=== PATIENT | female | born 1945 | race Caucasian/White ===

== ENCOUNTER 2020-09-03 11:04 | Day surgery (SDC) | payer MEDICARE ==
[~2020-09-03] VITALS: Ht 172.7 cm; Wt 85.0 kg
[~2020-09-03 11:04] MED LIST: BUPIVACAINE/PF 0.25% ONE; HEPARIN 1,000 UNITS/ML, 10ML ONE; LIDOCAINE 1%, 20ML ONE; PAPAVERINE 30 MG/ML, 2ML ONE; THROMBIN 5,000 UNIT VIAL TP ONE
[2020-09-03] MEDS ORDERED: CHLORHEXIDINE 15 ML UDC ONE (11:54)
[2020-09-03] MEDS ORDERED: LACTATED RINGERS 1,000 ML IV SCH (12:00)
[2020-09-03] MEDS ORDERED: CHLORHEXIDINE 15 ML UDC PO ONE (12:00)
[2020-09-03 12:09] VITALS: BP 199/76
[2020-09-03] MEDS ORDERED: PROPOFOL 50 ML ONE (12:28)
[2020-09-03] MEDS ORDERED: MIDAZOLAM 1 MG/ML, 2ML ONE (12:28)
[2020-09-03] MEDS ORDERED: FENTANYL PF 250 MCG/5ML ONE (12:29)
[2020-09-03] MEDS ORDERED: SODIUM CHLORIDE 0.9% 1,000 ML IV SCH (12:30)
[2020-09-03] MEDS ORDERED: CALCITROL PO (12:38)
[2020-09-03] MEDS ORDERED: [UNRECOGNIZED DRUG - OTHER] PO (12:38)
[2020-09-03] MEDS ORDERED: ACET-1600 PO (12:38)
[2020-09-03] MEDS ORDERED: VIT D PO (12:38)
[2020-09-03] MEDS ORDERED: FLUO20CA23 PO (12:38)
[2020-09-03] MEDS ORDERED: CHLORTRIMETON PO (12:38)
[2020-09-03] MEDS ORDERED: SLEEP AID PO (12:38)
[2020-09-03] MEDS ORDERED: MODA200T2 PO (12:38)
[2020-09-03] MEDS ORDERED: RECLAST (12:38)
[2020-09-03] MEDS ORDERED: ATOR20TA37 PO (12:38)
[2020-09-03] MEDS ORDERED: CENTRUM SILVER WOMEN PO (12:38)
[2020-09-03] MEDS ORDERED: EXCEDRIN TENSION HA PO (12:38)
[2020-09-03] MEDS ORDERED: B COMPLEX PO (12:38)
[2020-09-03] MEDS ORDERED: MECLIZINE PO (12:38)
[2020-09-03] MEDS ORDERED: LISI-170 PO (12:38)
[2020-09-03] MEDS ORDERED: PROPOFOL 10 MG/ML, 20ML ONE (14:05)
[2020-09-03] MEDS ORDERED: ONDANSETRON 2MG/ML, 2ML ONE (14:05)
[2020-09-03] MEDS ORDERED: HYDR-2214 PO (14:42)
[2020-09-03] MEDS ORDERED: LABETALOL 5MG/ML, 20ML IV PRN (15:00)
[2020-09-03] MEDS ORDERED: DIPHENHYDRAMINE 50 MG/ML, 1ML IVPush PRN (15:00)
[2020-09-03] MEDS ORDERED: DIAZEPAM 5 MG/ML, 2ML IVPush PRN (15:00)
[2020-09-03] MEDS ORDERED: morphine SULFATE 10 MG/ML, 1ML IVPush PRN (15:00)
[2020-09-03] MEDS ORDERED: EPHEDRINE 50 MG/ML, 1ML IVPush PRN (15:00)
[2020-09-03] MEDS ORDERED: OXYcodone 5 MG/5 ML ORAL.SOL UDC PO PRN (15:00)
[2020-09-03] MEDS ORDERED: ACETAMINOPHEN 325 MG TABLET PO PRN (15:00)
[2020-09-03] MEDS ORDERED: PROMETHAZINE 25 MG/ML, 1ML IVPush PRN (15:00)
[2020-09-03] MEDS ORDERED: ONDANSETRON 2MG/ML, 2ML IVPush PRN (15:00)
[2020-09-03] MEDS ORDERED: FENTANYL PF 100 MCG/2ML IV PRN (15:00)
[2020-09-03] MEDS ORDERED: EPHEDRINE 50 MG/ML, 1ML IM PRN (15:00)
[2020-09-03] MEDS ORDERED: ACETAMINOPHEN 650 MG/20.3 ML UDC ONE (15:03)
[2020-09-03] MEDS ORDERED: CEFAZOLIN 1,000 MG ONE (16:19)
[2020-09-03] MEDS ORDERED: PROTAMINE SULFATE 10 MG/ML, 5ML ONE (16:19)
== END 2020-09-03 16:40 | disposition home or self-care (01) ==
LOC: OUT 11:04
PROVIDERS: ATTEND Surgery
DX: I12.0 Hypertensive chronic kidney disease with stage 5 chronic kidney disease or end stage renal disease (principal); N18.6 End stage renal disease; E78.5 Hyperlipidemia, unspecified; E66.9 Obesity, unspecified; Z20.822 Contact with and (suspected) exposure to COVID-19; Z68.27 Body mass index [BMI] 27.0-27.9, adult; Z79.899 Other long term (current) drug therapy; Z88.2 Allergy status to sulfonamides; Z99.2 Dependence on renal dialysis; Z98.890 Other specified postprocedural states
CPT/HCPCS: 36832; 87635; 93005; J0690; J1644; J2250; J2405; J2704; J2720; J3010; J7030; J2440